=== PATIENT | male | born 1980 | race Caucasian/White ===

== ENCOUNTER 2017-01-27 13:14 | Emergency (ER) | payer BC ==
[~2017-01-27] VITALS: Ht 182.9 cm; Wt 89.6 kg
[2017-01-27 18:18] VITALS: BP 110/67
== END 2017-01-27 18:25 | disposition home or self-care (01) ==
LOC: EME 13:14
PROC: 0HQGXZZ Repair Left Hand Skin, External Approach (ICD-10-PCS; principal; 2017-01-27)
PROC: 0HQQXZZ Repair Finger Nail, External Approach (ICD-10-PCS; principal; 2017-01-27)
DX: S61.311A Laceration without foreign body of left index finger with damage to nail, initial encounter (principal); W27.0XXA Contact with workbench tool, initial encounter; Y92.009 Unspecified place in unspecified non-institutional (private) residence as the place of occurrence of the external cause
CPT/HCPCS: 73140; 99281; 99285; S0020